=== PATIENT | male | born 1990 | race Caucasian/White ===

== ENCOUNTER 2021-07-18 22:35 | Emergency (ER) | payer BC, SELFPAY | END 2021-07-19 01:20 | disposition home or self-care (01) | LOC: CSHERS 22:35 | DX: F10.129 Alcohol abuse with intoxication, unspecified (principal); F17.210 Nicotine dependence, cigarettes, uncomplicated; F17.220 Nicotine dependence, chewing tobacco, uncomplicated; Y90.8 Blood alcohol level of 240 mg/100 ml or more | CPT/HCPCS: 80307; 99284 ==